=== PATIENT | female | born 1955 | race Native Hawaiian/Other Pacific Islander ===

== ENCOUNTER 2021-01-16 08:48 | Outpatient (CLI) | payer OTHER | END 2021-01-16 22:14 | disposition home or self-care (01) | LOC: RAD 08:48 | PROVIDERS: ATTEND Internal Medicine Cardiovascular Disease | DX: Z01.818 Encounter for other preprocedural examination (principal) ==

== ENCOUNTER 2021-06-30 12:19 | Outpatient (CLI) | payer BC, OTHER | END 2021-06-30 20:15 | disposition home or self-care (01) | LOC: LAB 12:19 | PROVIDERS: ATTEND Nurse Practitioner Family | DX: U07.1 COVID-19 (principal); R43.2 Parageusia; Z20.822 Contact with and (suspected) exposure to COVID-19; R43.0 Anosmia | CPT/HCPCS: 87635; G2023; U0003 ==